=== PATIENT | female | born 1975 | race Caucasian/White ===

== ENCOUNTER 2017-09-29 03:02 | Inpatient (IN) | payer OTHER ==
[~2017-09-29] VITALS: Ht 167.6 cm; Wt 77.1 kg
[~2017-09-29 03:02] MED LIST: CLONIDINE HCL0.1 MG PO; CLONIDINE HCL0.2 M1 PO; HYDROCODON-ACE1 EAC2 PO; METHADONE10 MG/5 M2 PO; VISTARIL50 M1 PO; ZOLOFT100 M1 PO
[2017-09-29 06:37] LABS: ABSOLUTE BASOPHIL COUNT 0 /CUMM (0.0-0.2); ABSOLUTE EOSINOPHIL COUNT 0.4 /CUMM (0.0-0.7); ABSOLUTE GRANULOCYTE CT 3.8 /CUMM (1.4-6.5); ABSOLUTE LYMPH COUNT 1.3 /CUMM (1.2-3.4); ABSOLUTE MONOCYTE COUNT 0.5 /CUMM (0.10-0.60); BASOPHIL % 0.4 % (0.0-2.0); EOSINOPHIL % 6.9 % (0-5); GRANULOCYTE % 63.5 % (42.2-75.2); MEAN CORPUSCULAR HGB 29.1 PG (27.0-31.0); MEAN CORPUSCULAR HGB CONC 34.2 G/DL (33.0-37.0); MEAN PLATELET VOLUME 7.4 FL (7.4-10.4); PLATELET COUNT 299 /CUMM (130-400); RBC DISTRIBUTION WIDTH 13.7 % (11.5-14.5); RED BLOOD CELL CT 4.34 /CUMM (4.20-5.40)
--- NOTE | 2017-09-29 13:02 | Admission Core Measures ---
Acute Coronary Syndrome (CM) ACS Core Measures Acute Coronary Syndrome Diagnosis No Congestive Heart Failure (NEW) CHF Core Measures Congestive Heart Failure Diagnosis No Cerebrovascular Accident CVA Core Measures CVA/TIA Diagnosis No Venous Thromboembolism VTE Core Reese (View Protocol) VTE Risk Factors Surgery No Mechanical VTE Prophylaxis d/t N/A MechProphylax Ordered No VTE Pharm Prophylaxis d/t NA PharmProphylax ordered Problem List As ranked by this Provider includes Assessment & Plan 1. Rectal prolapse HOME MEDS Home Med List Clonidine HCl 0.1 MG TABLET 1 TAB PO QAM ANXIETY (Reported) Clonidine HCl 0.2 MG TABLET 1 TAB PO QPM ANXIETY (Reported) Hydroxyzine Pamoate (Vistaril) 50 MG CAPSULE 2 CAP PO QPM ANXIETY/SLEEP ( Reported) Methadone HCl 10 MG/5 ML SOLUTION 130 MG PO DAILY CHRONIC PAIN/MENTAL HEALTH (Reported) Sertraline HCl (Zoloft) 100 MG TABLET 1.5 TAB PO DAILY MENTAL HEALTH ( Reported)
--- NOTE | 2017-09-29 13:05 | Patient Discharge Instructions ---
Discharge Instructions General Discharge Information You were seen/treated for: Rectal prolapse You had these procedures: Robotic sigmoidectomy with rectopexy Watch for these problems: Increased pain, fever, redness, swelling or drainage from incisions Call Surgeon to remove: [place] Do not soak the wound: Yes No bath, but you may shower: Yes Other wound care: Keep incisions clean and dry Change dressing daily as needed Diet Continue normal diet: No Recommended Diet: Low Residue Activity Full Activity/No Limits: No Activity Self Limited: Yes Pounds, do NOT lift more than: 10 Other activity limits: No heavy lifting or strenous activity Acute Coronary Syndrome Inclusion Criteria At DC or during hospital stay patient has or had the following: ACS DIAGNOSIS No Discharge Core Measures Meds if any: Prescribed or Continued at Discharge Meds if any: NOT Prescribed or Continued at Discharge Congestive Heart Failure Inclusion Criteria At DC or during hospital stay patient has or had the following: CHF DIAGNOSIS No Discharge Core Measures Meds if any: Prescribed or Continued at Discharge Meds if any: NOT Prescribed or Continued at Discharge Cerebrovascular accident Inclusion Criteria At DC or during hospital stay patient has or had the following: CVA/TIA Diagnosis No Discharge Core Measures Meds if any: Prescribed or Continued at Discharge Meds if any: NOT Prescribed or Continued at Discharge Venous thromboembolism Inclusion Criteria VTE Diagnosis No VTE Type NONE VTE Confirmed by (Test) NONE Discharge Core Measures - Per Current guidelines, there needs to be overlap - treatment for the first 5 days of Warfarin therapy. - If discharged on Warfarin prior to 5 days of - overlap therapy, the patient will need to be - assessed for post discharge needs including - *Post discharge parental anticoagulation - *Warfarin and/or parental anticoagulation education - *Follow up date to check INR post discharge At least 5 days overlap therapy as Inpatient No Meds if any: Prescribed or Continued at Discharge Note: Overlap Therapy is Warfarin and Anticoagulant Meds if any: NOT Prescribed or Continued at Discharge
--- NOTE | 2017-09-29 13:11 | Surg Short-stay <48hrs Dis Sum ---
Visit Information Visit Dates Admission Date: 09/29/17 Discharge Date: 10/03/17 Surgical Short Stay DC Summary Admission Diagnosis: Rectal prolapse Final Diagnosis: TAIWO Procedure(s): Robotic rectopexy with sigmoidectomy Summary/Significant Findings: Patient presented electively for a robotic rectopexy with sigmoidectomy for rectal prolapse. ERAS protocol was started preop and maintained postop. Her diet was advanced and tolerated with return of bowel function. Throughout her hospital course, vital signs remained stable and within normal limits, pain was adequately controlled and she was deemed appropriate for discharge. Condition at Discharge: Stable Discharge Disposition: crisis and respit, [place] Discharge instructions provided to patient/family: Yes Post discharge follow-up plan: 1-[address] Monson
--- NOTE | 2017-09-29 13:19 | Operative Report ---
Operative/Inv Procedure Report Surgery Date: 09/29/17 Name of Procedure: 1.Robotic proctopexy with sigmoidectomy 2. Rigid sigmoidoscopy Pre-Operative Diagnosis: Rectal prolapse Post-Operative Diagnosis: Rectal prolapse Estimated Blood Loss: less than 50ml Surgeon/Smoking Tobacco Cutter Operator: Akira Monson Jr., DO Anesthesia: general endotracheal tube, block Monitors: Per routine IV Fluids: Refer to anesthesia record Implants: None Urine Output: Refer to anesthesia record Drains: None Specimens: Sigmoid colon Complications: None Condition: Good Operative Indication: This is a 42-year-old female with full-thickness rectal prolapse. Because of her age and overall health I recommended a trans-abdominal repair of her prolapse. She was scheduled for rectopexy with likely sigmoidectomy Operative/Procedure Note Note: On the day before her operation she did a bowel prep at home including oral laxatives and oral antibiotics On the morning of her operation she drinks 12 ounces of apple juice 3 hours prior to her scheduled surgery When she arrived to she received the usual ERAS premedication with the exception of Entereg which was not used because of her chronic narcotic use She was taken to the operating room. She was placed in the supine position on the operating room table. She underwent induction of general anesthesia placement of endotracheal tube and Yang catheter. Bilateral tap blocks were performed by the anesthesia department. She was converted to lithotomy position with both arms tucked. The abdomen and perineum were prepped and draped in usual fashion. We began the operation using a Veress needle to achieve insufflation. The Veress needle was inserted in the midclavicular line supplies on the left. The abdomen was insufflated to 15 mmHg and then the usual robotic ports were placed. Exploration of the abdominal cavity revealed a very redundant sigmoid colon. There is a small amount of free fluid in the pelvis which appeared benign. The rectosigmoid was grasped I could clearly identify both the left and right ureter without having to do dissection. The rectosigmoid was retracted towards the anterior abdominal wall. I incised the peritoneum at the sacral promontory to the right of the rectosigmoid and entered the posterior avascular space of the rectum. I developed the space all the way down to the levators posteriorly and then divided the lateral columns of the rectum on both sides using the vessel sealer. After completing the mobilization, I inspected the sigmoid colon and shows my proximal site of transection. A marking stitch was placed here with 2-0 Vicryl suture. The mesenteric vessels were then skeletonized. And then the inferior mesenteric vessels were divided using the robotic vessel sealer. These of course for the inferior mesenteric artery and vein distal to the takeoff of the left, iliac artery and I also believe up observed at least one sigmoid branch. After dividing the vessels which was made distal site of transection at the rectosigmoid. The mesentery was cleared here by electrocautery and vessel sealing device. Once the rectosigmoid wall was exposed the FLORY blue robotic stapler was used to divide the bowel. Next a 4 cm Pfannenstiel incision was performed and a wound protector was placed through the incision. We are able to extract the transected portion of the bowel through this incision. And then at the previously chosen site for proximal transection the mesentery was cleared. The mesentery was partly cleared with electrocautery and larger bundles of tissue and vessels were ligated and divided with 2-0 Vicryl ties. The bowel was sharply divided. Sigmoid was sent for routine path. A handsewn pursestring was performed in the open end of the colon with 2-0 Prolene suture. A 28 EEA stapler was chosen for the anastomosis. The anvil was placed into the lumen of the bowel and the pressure and was tied snugly around the PEG of the anvil. The bowel was reduced back into the abdominal cavity and a cap was placed on the wound protector. We reestablished pneumoperitoneum. Next we prepared to perform the anastomosed. First EEA sizers and then the EEA stapler passed transanally. When the filiberto in the appropriate position the spike was opened. It emerged right in the mid portion of the FLORY staple line just posterior to the staple line. The 2 ends of the stapler were mated laparoscopically. Staple was completely closed and allowed to settle for 30 seconds. Staple was armed fired open and retrieved. 2 excellent donuts on the stapling device. Next pelvis was filled with sterile saline and then the bowel was gently occluded proximal to the anastomosis. Rigid sigmoidoscopy was performed and there was no air bubbling at the anastomosis. The fluid was aspirated from the pelvis. The robot was re-docked. The proctopexy was then performed by suturing the right lateral stalk of the rectum to the sacral promontory at two-point. I used 0 silk in a U stitch fashion to create the pexy. I was very pleased with packed. The peritoneum along the lateral dissection of the rectum was closed with a running V lock suture to have improved tissue proximation and help create a strong scar. Next pneumoperitoneum was let down. The ports were removed under direct visualization of the left. The Pfannenstiel incision was closed first. The peritoneum was closed with a [id number] 2-0 Vicryl. The fascia was closed transversely with a 0 PDS suture. The subcu was copiously irrigated and closed with skin filiberto. The laparoscopic/robotic ports were all closed with subcuticular 4 Monocryl the skin glue. A small island dressing was placed over the Pfannenstiel incision. The patient was converted to supine. She tolerated the procedure well, she was extubated in the operating room, and was taken to recovery area in good condition. At the end of this operation all needle sponges and attention was working with
[2017-09-29 14:50] VITALS: BP 104/62
[2017-09-29 16:05] VITALS: BP 96/60
[2017-09-29 17:08] VITALS: BP 100/66
--- NOTE | 2017-09-29 17:44 | PN- General Surgery ---
Subjective Subjective: poc s/p robo rectopexy/sigmoidectomy 08/22 lower abd pain deneis cp, sob, no n+v with clear diet metzger with clear urine Objective Vital Signs and I&Os Vital Signs Date Time Temp Pulse Resp B/P B/P Pulse O2 O2 Flow FiO2 Mean Ox Delivery Rate 09/29 1708 98.4 88 18 100/66 100 Nasal 2.0L Cannula 09/29 1607 97 Nasal 2.0L Cannula 09/29 1605 98.4 84 18 96/60 99 Nasal 2.0L Cannula 09/29 1450 97.8 78 18 104/62 97 Nasal 2.0L Cannula Intake & Output 09/29 1600 09/29 0800 09/29 0000 09/28 1600 09/28 0800 09/28 0000 Intake Total Output Total Balance Patient 170 lb Weight Physical Exam: cv: rrr lungs: clear abd: soft, expected tenderness to palp drsg dry no guarding to palp ext: warm, distal cms intact Assessment/Plan Assessment/Plan surgical stable h/o subst. abuse currently on methadone plan metzger overnight clear diet eras hep subq/alps for dvt prophylaxis ok for oob tonight to chair Core Measures Venous Thromboembolism VTE Risk Factors Surgery No Mechanical VTE Prophylaxis d/t N/A MechProphylax Ordered No VTE Pharm Prophylaxis d/t NA PharmProphylax ordered
[2017-09-29 18:00] VITALS: BP 114/70
[2017-09-29 20:00] VITALS: BP 105/62
[2017-09-29 22:26] VITALS: BP 100/60
[2017-09-30 00:16] VITALS: BP 100/82
[2017-09-30 07:03] VITALS: BP 100/82
--- NOTE | 2017-09-30 08:14 | PN- General Surgery ---
See Addendum Subjective Subjective: Patient with complaints of abdominal cramping pain, intermittent, muscle spasm of the abdominal wall. Pain is moderate. She has yet to be out of bed. She denies any flatus. She is taking minimal clears Objective Vital Signs and I&Os Vital Signs Date Time Temp Pulse Resp B/P B/P Pulse O2 O2 Flow FiO2 Mean Ox Delivery Rate 09/30 0703 98.8 74 19 100/82 97 09/30 0016 98.8 74 19 100/82 97 09/30 0000 Nasal 2.0L Cannula 09/29 2226 98.0 80 19 100/60 96 Nasal 2.0L Cannula 09/29 2121 98.6 84 19 105/62 09/29 2000 98.6 84 19 105/62 98 Nasal 2.0L Cannula 09/29 1800 99.4 87 18 114/70 98 Nasal 2.0L Cannula 09/29 1708 98.4 88 18 100/66 100 Nasal 2.0L Cannula 09/29 1700 Nasal 2.0L Cannula 09/29 1607 97 Nasal 2.0L Cannula 09/29 1605 98.4 84 18 96/60 99 Nasal 2.0L Cannula 09/29 1450 97.8 78 18 104/62 97 Nasal 2.0L Cannula Intake & Output 09/30 1600 09/30 0800 09/30 0000 09/29 1600 09/29 0800 09/29 0000 Intake Total 240 1005 Output Total 400 2450 Balance -160 -1445 Intake, IV 525 Intake, Oral 240 480 Output, Urine 400 2450 Patient 170 lb Weight Weight Standing Scale Measurement Method Physical Exam: Well-developed well-nourished no apparent distress. HEENT: Atraumatic, extraocular motion intact Neck: Supple, no lymphadenopathy Respiratory: No respiratory distress Abdomen: Softly distended. Incision sites clean dry and intact, dressing clean dry and intact of lower abdomen. Hypoactive bowel sounds. Extremities: No edema, no calf pain Neuro: Alert and oriented x3 Psych: Mood affect normal, normal memory normal judgment. Skin: Warm and dry, no rash on exposed skin Results Last 48 Hours of Labs: Laboratory Tests 09/30 09/29 0730 0628 Chemistry Sodium (137 - 145 mmol/L) Pending 135 L Potassium (3.5 - 5.1 mmol/L) Pending 3.9 Chloride (98 - 107 mmol/L) Pending 103 Carbon Dioxide (22 - 30 mmol/L) Pending 23 Anion Gap (5 - 16) Pending 10 BUN (7 - 17 mg/dL) Pending 14 Creatinine (0.5 - 1.0 mg/dL) Pending 0.9 Estimated GFR (>60 ml/min) > 60 BUN/Creatinine Ratio (7 - 25 %) Pending 15.6 Glucose (65 - 99 mg/dL) 87 Calcium (8.4 - 10.2 mg/dL) 9.2 Hematology CBC w Diff Pending NO MAN DIFF REQ WBC (4.8 - 10.8 /CUMM) Pending 6.0 RBC (4.20 - 5.40 /CUMM) Pending 4.34 Hgb (12.0 - 16.0 G/DL) Pending 12.6 Hct (37 - 47 %) Pending 37.0 MCV (81.0 - 99.0 FL) Pending 85.0 MCH (27.0 - 31.0 PG) Pending 29.1 MCHC (33.0 - 37.0 G/DL) Pending 34.2 RDW (11.5 - 14.5 %) Pending 13.7 Plt Count (130 - 400 /CUMM) Pending 299 MPV (7.4 - 10.4 FL) Pending 7.4 Gran % (42.2 - 75.2 %) 63.5 Lymphocytes % (20.5 - 51.1 %) 21.2 Monocytes % (1.7 - 9.3 %) 8.0 Eosinophils % (0 - 5 %) 6.9 H Basophils % (0.0 - 2.0 %) 0.4 Absolute Granulocytes (1.4 - 6.5 /CUMM) 3.8 Absolute Lymphocytes (1.2 - 3.4 /CUMM) 1.3 Absolute Monocytes (0.10 - 0.60 /CUMM) 0.5 Absolute Eosinophils (0.0 - 0.7 /CUMM) 0.4 Absolute Basophils (0.0 - 0.2 /CUMM) 0 Assessment/Plan Assessment/Plan Postop day #1 status post robotic rectopexy and sigmoidectomy secondary to rectal prolapse Continue clears. Will advance diet as tolerated Continue IV fluids until tolerating adequate p.o. DC Yang. Encourage ambulation. Add Robaxin for abdominal wall muscle spasm, try to minimize narcotics, patient on methadone chronically ERAS protocol Follow a.m. labs Heparin subcu for DVT prophylaxis Core Measures Venous Thromboembolism VTE Risk Factors Surgery No Mechanical VTE Prophylaxis d/t N/A MechProphylax Ordered No VTE Pharm Prophylaxis d/t NA PharmProphylax ordered
[2017-09-30 08:34] LABS: ABSOLUTE BASOPHIL COUNT 0 /CUMM (0.0-0.2); ABSOLUTE EOSINOPHIL COUNT 0 /CUMM (0.0-0.7); MEAN PLATELET VOLUME 8.4 FL (7.4-10.4)
[2017-09-30 09:01] LABS: ABSOLUTE GRANULOCYTE CT 7.3 /CUMM (1.4-6.5); ABSOLUTE LYMPH COUNT 1.6 /CUMM (1.2-3.4); ABSOLUTE MONOCYTE COUNT 0.5 /CUMM (0.10-0.60); BASOPHIL % 0.2 % (0.0-2.0); EOSINOPHIL % 0.3 % (0-5); GRANULOCYTE % 77.4 % (42.2-75.2); MEAN CORPUSCULAR HGB 28.8 PG (27.0-31.0); MEAN CORPUSCULAR HGB CONC 33.7 G/DL (33.0-37.0); MEAN CORPUSCULAR VOLUME 85.4 FL (81.0-99.0); PLATELET COUNT 245 /CUMM (130-400); RBC DISTRIBUTION WIDTH 13.4 % (11.5-14.5); RED BLOOD CELL CT 3.44 /CUMM (4.20-5.40)
[2017-09-30 09:04] LABS: HEMATOCRIT 29.4 % (37-47); WHITE BLOOD CELL COUNT 9.5 /CUMM (4.8-10.8)
[2017-09-30 09:57] VITALS: BP 98/60
[2017-09-30 12:00] VITALS: BP 94/60
[2017-09-30 14:30] VITALS: BP 90/52
[2017-09-30 21:53] VITALS: BP 90/54
[2017-10-01 06:58] VITALS: BP 118/67
--- NOTE | 2017-10-01 08:39 | PN- Student ---
See Addendum Dianne Mallory 10/01/17 0828: Subjective Subjective: The pt is still having abdominal pain that is unbearable when she stands up but tolerable laying in bed. Abdominal wall muscle spasms still present. Tolerating her full liquid diet this morning. No n/v. She is having some bowel incontinence , passing loose stool. Objective Objective: Gen: O&Ax3, sitting up in bed comfortably, in no apparent distress Skin: warm,dry Abd: soft, nontender, softly distended, no gaurding/rigidity. Incisions sites are all clean/dry/intact LE: no edema, soft Results Results: Laboratory Tests 09/30/17 0730: Anion Gap 5, Estimated GFR > 60, BUN/Creatinine Ratio 15.0, CBC w Diff NO MAN DIFF REQ, RBC 3.44 L, MCV 85.4, MCH 28.8, MCHC 33.7, RDW 13.4, MPV 8.4, Gran % 77.4 H, Lymphocytes % 17.2 L, Monocytes % 4.9, Eosinophils % 0.3, Basophils % 0.2, Absolute Granulocytes 7.3 H, Absolute Lymphocytes 1.6, Absolute Monocytes 0.5, Absolute Eosinophils 0, Absolute Basophils 0 09/29/17 0628: Anion Gap 10, Estimated GFR > 60, BUN/Creatinine Ratio 15.6, Glucose 87, Calcium 9.2, CBC w Diff NO MAN DIFF REQ, RBC 4.34, MCV 85.0, MCH 29.1, MCHC 34.2, RDW 13.7, MPV 7.4, Gran % 63.5, Lymphocytes % 21.2, Monocytes % 8.0, Eosinophils % 6.9 H, Basophils % 0.4, Absolute Granulocytes 3.8, Absolute Lymphocytes 1.3, Absolute Monocytes 0.5, Absolute Eosinophils 0.4, Absolute Basophils 0 Microbiology 09/29 08 URINE ROUT: Urine Culture - RES Assessment/Plan Assessment: This is a 42 yo pt with a history of substance abuse that is POD 2 s/p robotic rectopexy and sigmoidectomy secondary to rectal prolapse Plan: -Advance diet to low fiber today -Robaxin prn for abd wall muscle spasms -Encourage PO intake, ambulation, IS -Pain control as ordered -No metzger, voiding well -ERAS protocol -c/w Methadone -heparin sq for dvt ppx -Discuss discharge planning w/ case management Karine Zazueta 10/01/17 0850: Subjective Subjective: SAW PATIENT WITH STUDENT AND AGREE WITH ABOVE PLAN. SHE HAS DISCHARGE ISSUES AND WILL NEED CASE MANAGEMENT CONSULT FOR DISPOSITION. SHE WILL NEED TRANSITIONAL HOUSING
[2017-10-01 14:58] VITALS: BP 105/65
[2017-10-01 20:05] VITALS: BP 130/82
[2017-10-02 06:00] VITALS: BP 122/84
--- NOTE | 2017-10-02 06:58 | PN- Student ---
See Addendum Dianne Mallory 10/02/17 0653: Subjective Subjective: No acute overnight events. This morning the pt is doing well. She is ambulating, voiding w/o difficulty. Passing bowel movements/flatus. Diet was advanced to low fiber yesterday and she tolerated it well without n/v. She is still experiencing abdominal spasms. Her pain is unchanged from yesterday- she is comfortable at rest but states she has severe pain upon standing up. Objective Objective: Gen: O&Ax3, sitting up in bed comfortably, in no apparent distress Lungs: CTA Heart: s1 and s2 heard, distant heart sounds, RRR Abd: soft, nontender, non distended, no gaurding/rigidity. Incisions sites are all clean/dry/intact LE: no edema, soft Skin: warm/dry Results Results: Laboratory Tests 09/30/17 0730: Anion Gap 5, Estimated GFR > 60, BUN/Creatinine Ratio 15.0, CBC w Diff NO MAN DIFF REQ, RBC 3.44 L, MCV 85.4, MCH 28.8, MCHC 33.7, RDW 13.4, MPV 8.4, Gran % 77.4 H, Lymphocytes % 17.2 L, Monocytes % 4.9, Eosinophils % 0.3, Basophils % 0.2, Absolute Granulocytes 7.3 H, Absolute Lymphocytes 1.6, Absolute Monocytes 0.5, Absolute Eosinophils 0, Absolute Basophils 0 Microbiology 09/29 0857 URINE ROUT: Urine Culture - COMP Assessment/Plan Assessment: This is a 42 yo pt with a history of substance abuse that is POD 3 s/p robotic rectopexy and sigmoidectomy secondary to rectal prolapse Plan: -Pt is ready for discharge today, just awaiting case management to work with pt to find her a place to go upon discharge -Continue low fiber diet -Robaxin prn for abd wall muscle spasms -Encourage PO intake, ambulation, IS -Pain control as ordered -No metzger, voiding well -ERAS protocol -c/w Methadone -heparin sq for dvt ppx Liss Seth 10/02/17 0730: Assessment/Plan Plan: Agree with above student note. +abd pain, no cp/sob/n/v, william low res diet, oob to bathroom. - cont LRD - HL - encouraged OOB, ambulation, ALPs, hep sq - cont methadone, prn pain meds - DC planning- social issues/homeless, will dw case mgmt - will dw attending
[2017-10-02 15:42] VITALS: BP 128/78
[2017-10-02 21:52] VITALS: BP 142/86
[2017-10-03 07:31] VITALS: BP 140/87
--- NOTE | 2017-10-03 08:33 | PN- General Surgery ---
Surgical Brief Attending Note Brief Attending Note: Patient has been medically ready for discharge for several days now Social issues related to her history of have prevented her from discharge Continuing CARE working towards discharge placement Patient does complain of constipation today Start Colace 100 mg 2 times a day and MiraLAX 1 dose daily as needed
--- NOTE | 2017-10-03 09:00 | PN- Student ---
Dianne Mallory 10/03/17 0855: Subjective Subjective: No acute overnight events, the pt's symptoms are unchanged from yesterday. Still has pain with movement but comfortable at rest. Tolerating reg diet. Oob and voiding. She is passing gas, no BM since monday. Biggest concern at this time is where pt will go upon discharge. Pt is homeless and is working with case management to find a place to go. Objective Objective: Gen: O&Ax3, sitting up in bed comfortably, in no apparent distress Lungs: CTA Heart: s1 and s2 heard, distant heart sounds, RRR Abd: soft, nontender, non distended, no gaurding/rigidity. Incisions sites are all clean/dry/intact, filiberto in place on tranverse suprapubic incision site LE: no edema, soft Skin: warm/dry Assessment/Plan Assessment: This is a 42 yo pt with a history of substance abuse that is POD 4 s/p robotic rectopexy and sigmoidectomy secondary to rectal prolapse Plan: -Pt will be discharged when case management is able to find a place for her to go, pt is homeless currently -Continue low fiber diet -Robaxin prn for abd wall muscle spasms -Encourage PO intake, ambulation, IS -Pain control as ordered -No metzger, voiding well -ERAS protocol -c/w Methadone -heparin sq for dvt ppx Shai Hernandez 10/03/17 1207: Subjective Subjective: agree with above will stop oxycodone/tramadol start ibuprofen for d/c pain cont methadone d/c to retirement in [place] later today
[2017-10-03 09:34] VITALS: BP 140/87
[2017-10-03] MEDS ORDERED: DOCUSATE SODIU100 M3 PO (09:43)
[2017-10-03] MEDS ORDERED: MIRALAX119 GM PO (09:43)
[2017-10-03] MEDS ORDERED: OXYCODONE HCL5 M1 PO (09:51)
[2017-10-03] MEDS ORDERED: TRAMADOL HCL50 M1 PO (09:51)
[2017-10-03] MEDS ORDERED: GABAPENTIN300 M2 PO (09:51)
[2017-10-03] MEDS ORDERED: ROBAXIN500 M1 PO (09:51)
[2017-10-03] MEDS ORDERED: IBUPROFEN800 M1 PO (11:53)
== END 2017-10-03 15:09 | DRG 231 ==
LOC: SDA 03:02 → 2NB 03:02 → ENRESERV 13:47 → ENTRNSPT 14:29 → EDTRNSPT 14:32 → EDTRNSPTSTS 14:32 → EDTRNSPT 14:34 → 2NB 14:40 → CMPTRNSPT 14:53 → ENPENDDIS 10-03 11:57 → ENTRNSPT 10-03 14:30 → CMPTRNSPT 10-03 14:56 → 2NB 10-03 15:09
PROVIDERS: Colon & Rectal Surgery; Physician Assistant Surgical
PROC: 8E0W4CZ Robotic Assisted Procedure of Trunk Region, Percutaneous Endoscopic Approach (ICD-10-PCS; principal; 2017-09-29)
PROC: 3E0T3BZ Introduction of Anesthetic Agent into Peripheral Nerves and Plexi, Percutaneous Approach (ICD-10-PCS; principal; 2017-09-29)
PROC: 0HQ9XZZ Repair Perineum Skin, External Approach (ICD-10-PCS; principal; 2017-09-29)
PROC: 0DJD8ZZ Inspection of Lower Intestinal Tract, Via Natural or Artificial Opening Endoscopic (ICD-10-PCS; principal; 2017-09-29)
PROC: 0DBN4ZZ Excision of Sigmoid Colon, Percutaneous Endoscopic Approach (ICD-10-PCS; principal; 2017-09-29)
PROC: 0DQP4ZZ Repair Rectum, Percutaneous Endoscopic Approach (ICD-10-PCS; principal; 2017-09-29)
DX: K62.3 Rectal prolapse (principal); R15.9 Full incontinence of feces; K64.0 First degree hemorrhoids; Z86.14 Personal history of Methicillin resistant Staphylococcus aureus infection; F11.11 Opioid abuse, in remission; M62.838 Other muscle spasm; F41.9 Anxiety disorder, unspecified; Z59.0 Homelessness; Z98.51 Tubal ligation status; F17.210 Nicotine dependence, cigarettes, uncomplicated; Z88.1 Allergy status to other antibiotic agents; Z88.0 Allergy status to penicillin; M79.7 Fibromyalgia; F14.11 Cocaine abuse, in remission
CPT/HCPCS: 2NBP; 36415; 82436; 87086; C9290; J0131; J1580; J1644; J3490; J7042